=== PATIENT | male | born 1940 | race Caucasian/White ===

== ENCOUNTER 2016-07-19 09:02 | Day surgery (SDC) | payer MEDICARE ==
--- NOTE | ~2016-07-19 | EGD ---
EGD REPORT [facility] [address] [place]. [address] NAME: ALEK MERINO : [birth year] STATUS : REG [facility]#: [id number] AGE: 76 ADM/REG DATE : 07/19/16 MR#: [id number] REPORT SERV DATE: 07/19/16 DICTATED BY: DATE: REPORT STATUS : Draft TRANSCRIBED BY: [facility] DATE: 07/19/16 Endoscopy Center Patient Name: Alek Merino Date of : 1940 Attending MD: ANATOLIY GUTIERREZ MD Procedure Date No Time: 07/19/2016 Procedure: Upper GI endoscopy Indications: Surveillance for malignancy due to personal history of Jose's esophagus Referring MD: JAS HOUSER MD Medicines: Monitored Anesthesia Care Complications: No immediate complications. Procedure: Pre-Anesthesia Assessment: - ASA Grade Assessment: II - A patient with mild systemic disease. After obtaining informed consent, the endoscope was passed under direct vision. Throughout the procedure, the patient's blood pressure, pulse, and oxygen saturations were monitored continuously. The GIF H190 [id number] was introduced through the mouth, and advanced to the second part of duodenum. The upper GI endoscopy was accomplished without difficulty. The patient tolerated the procedure well. Findings: The Z-line was irregular and was found 35 cm from the incisors. Biopsies were taken with a cold forceps for histology. A hiatus hernia was present. The examined esophagus was mildly tortuous. No other significant abnormalities were identified in a careful examination of the esophagus. There is no endoscopic evidence of areas of erosion, ulcerations or varices in the entire esophagus. A few sessile fundic gland polyps were found on the greater curvature of the stomach. No other significant abnormalities were identified in a careful examination of the stomach. There is no endoscopic evidence of inflammation, mucosal abnormalities, ulceration or varices in the entire examined stomach. The examined duodenum was normal. There is no endoscopic evidence of mucosal abnormalities, stenosis or ulceration in the entire examined duodenum. The cardia and gastric fundus were otherwise normal on retroflexion. Impression: - Z-line irregular, 35 cm from the incisors. Biopsied. EGD REPORT [address] [address] NAME: ALEK MERINO : [birth year] STATUS : REG [facility]#: [id number] AGE: 76 ADM/REG DATE : 07/19/16 MR#: [id number] REPORT SERV DATE: 07/19/16 DICTATED BY: DATE: REPORT STATUS : Draft TRANSCRIBED BY: [employer] DATE: 07/19/16 - Hiatus hernia. - Tortuous esophagus. - Fundic gland polyps. - Normal examined duodenum. Recommendation: - Patient has a contact number available for emergencies. The signs and symptoms of potential delayed complications were discussed with the patient. Return to normal activities tomorrow. Written discharge instructions were provided to the patient. - Return to previous diet. - Discharge patient to home. - Continue present medications. - Await pathology results. - Repeat the upper endoscopy in 3 years for surveillance. Procedure Code(s): --- Professional --- 66247, Esophagogastroduodenoscopy, flexible, transoral; with biopsy, single or multiple Diagnosis Code(s): --- Professional --- K22.8, Other specified diseases of esophagus K44.9, Diaphragmatic hernia without obstruction or gangrene Q39.9, Congenital malformation of esophagus, unspecified K31.7, Polyp of stomach and duodenum K22.70, Jose's esophagus without dysplasia CPT copyright 2013 [employer]. All rights reserved. The codes documented in this report are preliminary and upon terrazzo installer review may be revised to meet current compliance requirements. ANATOLIY GUTIERREZ MD 07/19/2016 11:55 AM This report has been signed electronically. Number of Addenda: 0 Note Initiated On: 07/19/2016 11:03 AM Scope Withdrawal Time 0 hours 0 minutes 0 seconds [address] [place] [address]
--- NOTE | ~2016-07-19 | EGD ---
EGD REPORT [facility] [address] [place]. [address] NAME: ALEK MERINO : [birth year] STATUS : REG [facility]#: [id number] AGE: 76 ADM/REG DATE : 07/19/16 MR#: [id number] REPORT SERV DATE: 07/19/16 DICTATED BY: DATE: REPORT STATUS : Draft [facility]: [facility] DATE: 07/19/16 Endoscopy Center Patient Name: Alek Merino Date of : 1940 Attending MD: ANATOLIY GUTIERREZ MD Procedure Date No Time: 07/19/2016 Procedure: Colonoscopy Indications: Screening for colorectal malignant neoplasm Referring MD: JAS HOUSER MD Medicines: Monitored Anesthesia Care Complications: No immediate complications. Procedure: Pre-Anesthesia Assessment: - ASA Grade Assessment: II - A patient with mild systemic disease. After I obtained informed consent, the scope was passed under direct vision. Throughout the procedure, the patient's blood pressure, pulse, and oxygen saturations were monitored continuously. The PCF [id number] was introduced through the anus and advanced to the cecum, identified by appendiceal orifice and ileocecal valve. The colonoscopy was performed without difficulty. The patient tolerated the procedure well. The quality of the bowel preparation was excellent. Findings: The perianal and digital rectal examinations were normal. Multiple small-mouthed diverticula were found in the sigmoid colon. Multiple small scars were found at the splenic flexure. Two sessile polyps were found at the hepatic flexure. The polyps were small in size. These polyps were removed with a cold snare. Resection and retrieval were complete. Two sessile polyps were found in the cecum. The polyps were 8 mm in size. These polyps were removed with a cold snare. Resection and retrieval were complete. Three sessile polyps were found at the splenic flexure. The polyps were small in size. These polyps were removed with a cold snare. Resection and retrieval were complete. No other significant abnormalities were identified in a careful examination of the remainder of the colon. There is no endoscopic evidence of inflammation, mass or ulcerations in the entire colon. No additional abnormalities were found on retroflexion. Impression: - Diverticulosis in the sigmoid colon. - Scar at the splenic flexure due to prior episode EGD REPORT [place] [id number] [facility] [place]. [address] NAME: ALEK MERINO : [birth year] STATUS : REG [facility] PAT#: [id number] AGE: 76 ADM/REG DATE : 07/19/16 MR#: [id number] REPORT SERV DATE: 07/19/16 DICTATED BY: DATE: REPORT STATUS : Draft TRANSCRIBED BY: [employer] DATE: 07/19/16 ischemic colitis, now well healed. - Two small polyps at the hepatic flexure. Resected and retrieved. - Two 8 mm polyps in the cecum. Resected and retrieved. - Three small polyps at the splenic flexure. Resected and retrieved. Recommendation: - Patient has a contact number available for emergencies. The signs and symptoms of potential delayed complications were discussed with the patient. Return to normal activities tomorrow. Written discharge instructions were provided to the patient. - High fiber diet. - Discharge patient to home. - Continue present medications. - Await pathology results. - Repeat colonoscopy in 3 years for surveillance. Procedure Code(s): --- Professional --- 25787, Colonoscopy, flexible, proximal to splenic flexure; with removal of tumor(s), polyp(s), or other lesion(s) by snare technique Diagnosis Code(s): --- Professional --- K57.30, Diverticulosis of large intestine without perforation or abscess without bleeding K63.89, Other specified diseases of intestine D12.0, Benign neoplasm of cecum D12.3, Benign neoplasm of transverse colon Z12.11, Encounter for screening for malignant neoplasm of colon CPT copyright 2013 [employer]. All rights reserved. The codes documented in this report are preliminary and upon florist's decorator review may be revised to meet current compliance requirements. ANATOLIY GUTIERREZ MD 07/19/2016 12:28 PM This report has been signed electronically. Number of Addenda: 0 Note Initiated On: 07/19/2016 11:34 AM Scope Withdrawal Time 0 hours 7 minutes 57 seconds EGD REPORT [facility] [address] [place]. [address] NAME: ALEK MERINO : [birth year] STATUS : REG [facility]#: [id number] AGE: 76 ADM/REG DATE : 07/19/16 MR#: [id number] REPORT SERV DATE: 07/19/16 DICTATED BY: DATE: REPORT STATUS : Draft TRANSCRIBED BY: [employer] DATE: 07/19/16 [address] [place] [address]
[~2016-07-19 09:02] MED LIST: ACTONEL35 MG PO; ASAB PO; ATEN25 PO; BENEFIBER PO; BIOFREEZE; CENTRUM PO; CENTRUM TAB1 TAB PO; COLON HEALTH PO; CORICIDI2 PO; CORICIDIN HBP PO; CORTISPORIN0.5 % TOP; FORTAMET500 MG PO; HALF81 PO; HCTZ25B PO; HYDROCHLOROT25 MG PO; K-TABS10 MEQ PO; KLOR-CON M1010 MEQ PO; LIDEX CREAM 0.015 GM T; LIDODERM T; LIPITOR20 PO; METFORMIN; OS500+D PO; PLAVIX PO; PRILO PO; PROTONIX PO; SILVASORB TOP; VITAMIN B PO; [UNRECOGNIZED DRUG - OTHER]
== END 2016-07-19 23:59 | disposition home or self-care (01) ==
LOC: DMU 09:02
PROVIDERS: Internal Medicine Gastroenterology
PROC: 0DB48ZX Excision of Esophagogastric Junction, Via Natural or Artificial Opening Endoscopic, Diagnostic (ICD-10-PCS; 2016-07-19)
PROC: 0DBH8ZZ Excision of Cecum, Via Natural or Artificial Opening Endoscopic (ICD-10-PCS; principal; 2016-07-19 10:30)
PROC: 0DBL8ZZ Excision of Transverse Colon, Via Natural or Artificial Opening Endoscopic (ICD-10-PCS; 2016-07-19 10:30)
DX: Z12.11 Encounter for screening for malignant neoplasm of colon (principal); D12.3 Benign neoplasm of transverse colon; K57.30 Diverticulosis of large intestine without perforation or abscess without bleeding; K63.89 Other specified diseases of intestine; K44.9 Diaphragmatic hernia without obstruction or gangrene; K31.7 Polyp of stomach and duodenum; K22.8 Other specified diseases of esophagus; K22.70 Barrett's esophagus without dysplasia; K21.9 Gastro-esophageal reflux disease without esophagitis; I10 Essential (primary) hypertension; I25.2 Old myocardial infarction; E78.00 Pure hypercholesterolemia, unspecified; E11.9 Type 2 diabetes mellitus without complications; G31.89 Other specified degenerative diseases of nervous system; L30.9 Dermatitis, unspecified; Z88.8 Allergy status to other drugs, medicaments and biological substances; Z79.2 Long term (current) use of antibiotics; Z79.02 Long term (current) use of antithrombotics/antiplatelets; Z79.84 Long term (current) use of oral hypoglycemic drugs; Z79.899 Other long term (current) drug therapy; Z86.73 Personal history of transient ischemic attack (TIA), and cerebral infarction without residual deficits; Z96.1 Presence of intraocular lens; Z98.49 Cataract extraction status, unspecified eye; Z90.49 Acquired absence of other specified parts of digestive tract
CPT/HCPCS: 82962; 88305